=== PATIENT | male | born 1995 | race Two or more races ===

== ENCOUNTER 2017-06-26 16:56 | Emergency (ER) | payer BC, OTHER ==
[~2017-06-26] VITALS: Ht 182.9 cm; Wt 93.0 kg
[2017-06-26] MEDS ORDERED: KETOROLAC TROMETH 60MG/2ML VIAL IM ONE (17:30)
[2017-06-26] MEDS ORDERED: TETANUS-DIPTH-ACEL PERTUSSIS 0.5ML SYRG IM ONE (17:30)
[2017-06-26] MEDS ORDERED: NEOMYCIN-BACITRACIN-POLYM UNITDOSE PKG TOP OINT TOP ONE (20:00)
[2017-06-26 20:31] VITALS: BP 124/62
== END 2017-06-26 20:47 | disposition home or self-care (01) ==
LOC: ER 16:56
DX: T24.202A Burn of second degree of unspecified site of left lower limb, except ankle and foot, initial encounter (principal); F17.210 Nicotine dependence, cigarettes, uncomplicated; X19.XXXA Contact with other heat and hot substances, initial encounter; Y93.89 Activity, other specified; Y92.89 Other specified places as the place of occurrence of the external cause; Y99.8 Other external cause status
CPT/HCPCS: 16020; 90471; 90715; 96372; 99284; J1885

== ENCOUNTER 2023-02-11 11:33 | Emergency (ER) | payer BC, OTHER ==
[~2023-02-11] VITALS: Ht 182.9 cm; Wt 105.5 kg
[2023-02-11 12:10] VITALS: BP 138/82; PULSE 67; RESP 18; TEMP 98; O2SAT 96
[2023-02-11] MEDS ORDERED: KETOROLAC TROMETH 60MG/2ML VIAL IM ONE (12:30)
[2023-02-11] MEDS ORDERED: IBUP-1456 PO (13:10)
[2023-02-11] MEDS ORDERED: METH-1182 PO (13:10)
== END 2023-02-11 13:19 | disposition home or self-care (01) ==
LOC: ER 11:33
DX: S29.011A Strain of muscle and tendon of front wall of thorax, initial encounter (principal); S39.012A Strain of muscle, fascia and tendon of lower back, initial encounter; S63.8X2A Sprain of other part of left wrist and hand, initial encounter; F17.210 Nicotine dependence, cigarettes, uncomplicated; Z79.1 Long term (current) use of non-steroidal anti-inflammatories (NSAID); Z79.899 Other long term (current) drug therapy; V49.49XA Driver injured in collision with other motor vehicles in traffic accident, initial encounter; Y93.I9 Activity, other involving external motion; Y92.89 Other specified places as the place of occurrence of the external cause; Y99.8 Other external cause status
CPT/HCPCS: 71046; 72100; 73130; 96372; 99284; J1885

== ENCOUNTER 2023-05-17 15:04 | Emergency (ER) | payer SELFPAY ==
[~2023-05-17] VITALS: Ht 180.3 cm; Wt 113.6 kg
[~2023-05-17 15:04] MED LIST: IBUP-1456 PO; METH-1182 PO
[2023-05-17] MEDS ORDERED: ERYTHROMY OPTH OINT 5mg/gm 1gm or 3.5gm tube OP ONE (16:30)
[2023-05-17] MEDS ORDERED: GENT0.3S10 EACHEYE ×2 (16:31)
[2023-05-17] MEDS ORDERED: ERY05OO OP (16:37)
[2023-05-17 16:49] VITALS: BP 146/82; PULSE 107; RESP 18; TEMP 97.9; O2SAT 96
== END 2023-05-17 17:04 | disposition home or self-care (01) ==
LOC: ER 15:04
DX: H00.012 Hordeolum externum right lower eyelid (principal); F17.210 Nicotine dependence, cigarettes, uncomplicated; Z79.899 Other long term (current) drug therapy